=== PATIENT | female | born 1985 | race Caucasian/White ===

== ENCOUNTER 2021-08-15 01:51 | Day surgery (SDC) | payer OTHER, SELFPAY ==
[2021-08-05 09:25] VITALS: BMI 33.0
--- NOTE | 2021-08-05 09:30 | PC.NURSE ---
Report to the Outpatient Waiting Room, entrance under the green pavilion located off [facility], at time 1145 on date _08/15/21 . OR Time: _1345____. - You and your visitor will be asked a series of questions to screen for COVID 19 for your protection. - A mask is required within the hospital. Preoperative COVID Testing Requirements: No COVID Test needed if: (proof is required; if not received patient will have Rapid Test prior to entry) - Patient has received COVID Vaccine at least 14 days prior to procedure date or - Patient has positive COVID test result within last 90 days of surgery date. COVID Test needed if above criteria is not met If not COVID vaccinated a COVID test must be conducted within 72 hours of surgery and patient is asked to isolate self from time of testing until procedure. You will go to the [facility] for your COVID testing. The [facility] is located at the corner of [address] [facility]. You will only be called if COVID results are positive and your surgeon may reschedule your elective surgery date. Patients may have clear liquids (water, carbonated beverages, clear teas, apple juice) until 3 hours prior to surgery with a maximum of 20 ounces. - No food from midnight until time of surgery - Infants may have breast milk until 4 hours before surgery, infant formula 6 hours prior to surgery. - Children will be allowed to drink immediately following surgery. If applicable, please bring a bottle or sippy cup to assist with drinking. Juice, water, soda, and popsicles are readily available. For infants on formula, please bring formula the day of surgery. Pacifiers are allowed. Take the following medications with a SIP of water the morning of surgery: ___LEXAPRO Medications to discontinue per physician N/A Date to take last dose N/A Please no make-up, nail serbian, hairspray, perfume, deodorant, or body powder the day of surgery. No jewelry (including any body piercings) or valuables the day of surgery, leave them at home. Please take a shower or bath the night before, or the morning of, surgery with an antibacterial soap. Wear comfortable, loose fitting clothing. Children are encouraged to wear pajamas. - Jewelry must be removed prior to entering the operating room. Rings and piercings that are not removed may be cut off. - The hospital will not accept responsibility for valuables. - Please leave all valuables, including medications, at home the day of surgery. If you are going home after surgery, a licensed otr flatbed driver must drive you home. - NO public transportation without another adult. - We recommend that an adult stay with you for 24 hours following discharge. - We also recommend that you do not drive, make important decision, drink alcoholic beverages, or take any drugs that were not prescribed by your health care provider for at least 24 hours after your discharge time. For Pediatric surgeries, we recommend two adults accompany the child home (only one inside the building at this time). One visitor will be allowed to accompany the patient into the hospital. Patients visitor will be instructed to remain with patient at all times or leave the building. We will allow the visitor to come back to the postoperative area when patient is ready. Follow any additional instructions given to you from your surgeon. Telephone instructions given to _PATIENT__and asked if any additional questions and then verbalized understanding. Patient advised to call surgeon office or pre surgery nurse liaison [phone] if any additional questions.
--- NOTE | 2021-08-14 16:48 | WPDANESEPPF ---
Anes - Initial Pre Proc Eval Procedure: Operation Date: 08/15/21 09:30 Proposed Procedures p Loop Electrical Excision Procedure - Flaca Ba MD <Errol Lin MD - Last Filed: 08/26/21 06:54> Date/Time: 08/14/21 16:48 <Errol Lin MD - Last Filed: 08/26/21 06:54> Surgeon: Flaca Ba MD <Errol Lin MD - Last Filed: 08/26/21 06:54> Pre Op Diagnosis: MAYNOR 3 <Errol Lin MD - Last Filed: 08/26/21 06:54> Patient Data Age: 35 Gender: F Height: 1.65 m Weight: 90 kg <Errol Lin MD - Last Filed: 08/26/21 06:54> Allergies Allergy/AdvReac Type Severity Reaction Status Date / Time amoxicillin Allergy Hives Verified 08/15/21 08:38 <Errol Lin MD - Last Filed: 08/26/21 06:54> Home Medications Medication Instructions Recorded Confirmed Type escitalopram oxalate 5 mg tablet 5 mg PO DAILY 06/04/21 08/15/21 History medroxyprogesterone 150 mg/mL 150 mg IM [id number] 07/18/21 08/15/21 History intramuscular suspension <Errol Lin MD - Last Filed: 08/26/21 06:54> Patient hx anesthesia problems: none <Nicholas Tavares DO - Last Filed: 08/15/21 07:43> Family hx anesthesia problems: none <Nicholas Tavares DO - Last Filed: 08/15/21 07:43> Results Review: All pre-operative results and documents have been reviewed as part of the pre-operative evaluation. <Errol Lin MD - Last Filed: 08/26/21 06:54> PMFSH Past Medical History Medical History: Medical History High risk HPV infection History of vaginal delivery LGSIL on Pap smear of cervix Obesity <Errol Lin MD - Last Filed: 08/26/21 06:54> Social History Social History: Social History Smoking status: Never smoker Alcohol intake: never Substance use: never <Errol Lin MD - Last Filed: 08/26/21 06:54> Anes - Eval Final PreProcedure Day of Procedure 08/14/21 16:48 <Errol Lin MD - Last Filed: 08/26/21 06:54> Patient weight: obese <Errol Lin MD - Last Filed: 08/26/21 06:54> Heart: regular rate and rhythm <Errol Lin MD - Last Filed: 08/26/21 06:54> Lungs: clear to auscultation and normal air movement <Errol Lin MD - Last Filed: 08/26/21 06:54> Airway: Mallampati scale class II <Errol Lin MD - Last Filed: 08/26/21 06:54> Neurological: alert and oriented <Errol Lin MD - Last Filed: 08/26/21 06:54> Last oral intake: >/= 8 hours <Errol Lin MD - Last Filed: 08/26/21 06:54> ASA classification: II <Errol Lin MD - Last Filed: 08/26/21 06:54> Emergent: no <Errol Lin MD - Last Filed: 08/26/21 06:54> Anesthetic plan: proceed <Errol Lin MD - Last Filed: 08/26/21 06:54> Anesthesia type and monitoring: general GIVS and LMA <Errlo Lin MD - Last Filed: 08/26/21 06:54> Results Review: All pre-operative results and documents have been reviewed as part of the pre-operative evaluation. <Errol Lin MD - Last Filed: 08/26/21 06:54> Informed Consent: The patient's anesthetic plan and its attendant risks and benefits were discussed with the patient/family/POA. Questions were solicited and answers provided to the satisfaction of the patient/family/POA. <Errol Lin MD - Last Filed: 08/26/21 06:54>
--- NOTE | 2021-08-14 17:33 | PM.IMHP ---
H&P: HPI History of Present Illness Date/Time: 08/14/21 17:33 Patient is a 35yo woman with a long history of abnormal pap smears and cervical dysplasia. She is s/p LEEP in 2020. Subsequent pap smear in 04/2021 showed LGSIL. A colposcopy was performed showing MAYNOR 3. Discussion had with patient and decision was made to perform a re-excision. In general, patient reports feeling well today without complaints. Chief Complaint: High grade cervical dysplasia Review of Systems Review of Systems: All systems reviewed & are unremarkable except as noted in HPI and below Constitutional: Constitutional: Reports as per HPI, Reports no additional constitutional complaints, Denies chills, Denies fever(s), Denies headache(s) and Denies night sweats Eyes: Eyes: Reports as per HPI and Reports no additional eye complaints ENT: Reports system reviewed and no additional complaints, except as documented, Reports as per HPI, Reports Normal hearing present and Denies headache(s) Cardiovascular: Cardiovascular: Reports as per HPI, Reports no additional cardiovascular complaints, Denies chest pain and Denies dyspnea Respiratory: Respiratory: Reports as per HPI, Reports no additional respiratory complaints, Denies cough and Denies dyspnea Gastrointestinal: Gastrointestinal: Reports as per HPI, Reports no additional gastrointestinal complaints, Denies abdominal pain, Denies change in bowel habits, Denies change in stool character, Denies nausea and Denies vomiting Genitourinary: Genitourinary: Reports no additional female genitourinary complaints, Reports as per HPI, Denies abnormal vaginal bleeding, Denies genital lesions, Denies hot flashes, Denies dyspareunia, Denies pelvic pain, Denies sexual dysfunction, Denies urinary incontinence, Denies vaginal discharge, Denies vaginal dryness and Denies vaginal odor Musculoskeletal: Musculoskeletal: Reports no additional musculoskeletal complaints and Reports as per HPI Integumentary/Breasts: Skin/Breast: Reports system reviewed and no additional complaints, except as docu, Reports as per HPI, Denies breast pain and Denies nipple discharge Neurologic: Reports system reviewed and no additional complaints, except as documented, Reports as per HPI, Reports Normal hearing present and Denies headache(s) Psychiatric: Psychiatric: Reports no additional psychiatric complaints, Reports as per HPI, Denies anxiety and Denies depression Endocrine: Endocrine: Reports no additional endocrine complaints and Reports as per HPI Hematologic/Lymphatic: Hematologic/Lymphatic: Reports no additional hematologic/lymphatic complaints and Reports as per HPI Allergic/Immunologic: Allergic/Immunologic: Reports no additional allergic/immunologic complaints and Reports as per HPI PMFSH Past Medical History Medical History High risk HPV infection History of vaginal delivery LGSIL on Pap smear of cervix Obesity Social History Social History Smoking status: Never smoker Alcohol intake: never Substance use: never Meds Home Medications and Allergies Home Medications Medication Instructions Recorded Confirmed Type escitalopram oxalate 5 mg tablet 5 mg PO DAILY 06/04/21 08/05/21 History medroxyprogesterone 150 mg/mL 150 mg IM [id number] 07/18/21 08/05/21 History intramuscular suspension Allergies Allergy/AdvReac Type Severity Reaction Status Date / Time amoxicillin Allergy Hives Verified 08/13/21 10:20 Exam Const: General: cooperative, healthy appearing, comfortable and no acute distress HENMT: Head: normal to inspection Ears: hearing grossly normal bilaterally Eyes: General: appearance normal, both eyes and all related structures Neck: Neck: normal visual inspection Resp: Effort & Inspection: normal respiratory effort Auscultation: clear to auscultation bilaterally Cardio: Rate: regular rate Rhythm: regula
[2021-08-15 07:51] VITALS: BP 116/73; PULSE 75; RESP 16; TEMP 35.6; O2SAT 99
[2021-08-15] MEDS: LACTATED RINGERS 1,000 ML 30 ML IV CONT (07:59)
[2021-08-15] MEDS: ACETAMINOPHEN 500 MG TABLET 1000 MG PO (08:01)
--- NOTE | 2021-08-15 09:14 | WPDHPUPDATE1 ---
History and Physical Update Update Date/Time: 08/15/21 09:14 History and Physical has been reviewed, including an updated exam of the patient. There are NO changes in the patient's condition. Risks, benefits, and alternatives have been discussed and questions answered. Patient agrees to proceed with procedure.
[2021-08-15] MEDS: IODINE/POTASSIUM IODIDE 8 ML SOLUTION TOPICAL (09:46)
[2021-08-15 10:15] VITALS: BP 121/79; PULSE 65; RESP 12; O2SAT 100
--- NOTE | 2021-08-15 10:26 | W.PM.PROC2 ---
Procedure Note - Detailed Date of Procedure 08/15/21 Pre-op Diagnosis MAYNOR 3 Post-op Diagnosis Same Procedure Performed Loop electrosurgical excision procedure Surgeon Flaca Ba MD Anesthesia MAC Findings medium sized area of non-uptake noted circumferentially around cervix Description of Procedure The patient was taken to the operating room where she self-transferred to the operating room table. She was placed in dorsal supine position. Anesthesia was administered and found to be adequate. The patient was repositioned in dorsal lithotomy position and prepped and draped in the usual sterile fashion. A coated bivalve speculum was inserted into the vagina and suction tubing was connected to the speculum. The cervix was well visualized. A paracervical block was performed with 1% lidocaine. 5 cc of lidocaine was administered on both sides for a total of 10 cc. Lugol's solution was applied across the entire surface of the cervix. A medium sized area of non-uptake was noted circumferentially around the cervix. A medium-size loop was selected and connected to the electrical generator. This loop was used to make two passes across the cervix, The first pass was made to excise the inferior portion of the anterior surface of the cervix. The specimen was removed and set aside. A second pass was made to excise the superior portion of the anterior surface of the cervix and this specimen was also set aside. An endocervical curettage was performed. Rollerball cautery was used to cauterize the entire excision site and margins of the excision bed. Excellent hemostasis was noted. The procedure was deemed complete. The vagina was dried and the speculum was removed. The specimen were tagged with a suture and prepared to be sent to pathology for analysis. The patient was cleansed and dried. She was taken out of the dorsal lithotomy position and awakened from anesthesia without difficulty. She was transported to the recovery room in stable condition. All sponge and instrument counts were correct at the end of the procedure. Estimated Blood Loss 1 Urine Output 0 Drains No Packing No Pathology Yes (superior portion of cervix tagged at 12:00, inferior portion of cervix tagged at 6:00) Complications No immediate complications Condition Stable Disposition Same day [facility] Billing Surgery - Charge Forward: Surgery Billing
[2021-08-15 10:45] VITALS: BP 118/78; PULSE 56; RESP 16
[2021-08-15 11:15] VITALS: BP 117/79; PULSE 59; RESP 16
== END 2021-08-15 11:25 | disposition home or self-care (01) ==
PROVIDERS: Visit Provider Student in an Organized Health Care Education/Training Program
PROC: 0UBC7ZZ Excision of Cervix, Via Natural or Artificial Opening (ICD-10-PCS; CPT 57522; principal; 2021-08-15 09:30)
DX: N87.0 Mild cervical dysplasia (principal); N72 Inflammatory disease of cervix uteri; E66.9 Obesity, unspecified; Z68.34 Body mass index [BMI] 34.0-34.9, adult
CPT/HCPCS: 57522; 88305; 88307; A9270; J1100; J2250; J2405; J2704; J3010; J7120

== ENCOUNTER 2022-07-15 13:10 | Outpatient (CLI) | payer OTHER, SELFPAY ==
--- NOTE | ~2022-07-15 | XR_ITS ---
EXAM: XR wrist LT min 3V DATE: 07/15/2022 13:30 HISTORY: L WRIST EXTENSION Tenosynovitis,PAIN THRU 5TH . COMPARISON: None available. FINDINGS: Normal mineralization. No fracture or dislocation. No lytic or blastic lesion. Joint space s are maintained. No erosion or periosteal change. Soft tissues within normal limits. IMPRESSION: Normal left wrist radiograph findings. Reviewed, dictated and finalized at location K.
[2022-07-15 13:28] LABS: Basophils Absolute Auto 0.07 K/mm3 (0.00-0.10); Basophils Percent Auto 0.8 % (0.0-1.0); Eosinophils Absolute Auto 0.23 K/mm3 (0.02-0.50); Eosinophils Percent Auto 2.6 % (1.0-6.0); Hematocrit 38.1 % (35.0-49.0); Hemoglobin 12.9 g/dL (12.0-15.0); Immature Granulocyte Absolute 0.04 K/mm3 (0.00-0.00); Immature Granulocyte Percent A 0.4 % (0.0-0.0); Lymphocytes Absolute Auto 2.25 K/mm3 (1.10-4.50); Lymphocytes Percent Auto 25.1 % (18.0-42.0); Mean Corpuscular HGB Conc 33.9 g/dL (32.0-36.0); Mean Corpuscular Hemoglobin 31.6 pg (27.0-31.0); Mean Corpuscular Volume 93.4 fL (78.0-102.0); Mean Platelet Volume 9.7 fl (9.2-11.8); Monocytes Absolute Auto 0.57 K/mm3 (0.10-0.90); Monocytes Percent Auto 6.4 % (2.0-11.0); Neutrophils Absolute Auto 5.8 K/mm3 (1.7-7.2); Neutrophils Percent Auto 64.7 % (50.0-70.0); Platelet Count Result 305 K/mm3 (150-420); Red Blood Count 4.08 M/mm3 (4.20-5.40); Red Cell Distribution Width 12.2 % (11.6-14.4)
[2022-07-15 13:55] LABS: Alanine Aminotransferase 28 U/L (14-59); Albumin Level 3.8 g/dL (3.4-5.0); Alkaline Phosphatase 62 U/L (46-116); Anion Gap 9 mmol/L (8-16); Aspartate Amino Transferase 18 U/L (15-37); Bilirubin,Total 0.7 mg/dL (0.00-1.00); Blood Urea Nitrogen 14 mg/dL (7-18); Calcium 9.9 mg/dL (8.5-10.1); Carbon Dioxide 30 mmol/L (21-32); Chloride 101 mmol/L (98-108); Estimated Glomerular Filt Rate > 60; Glucose 90 mg/dL (70-99); Osmolality Calculated 290 mOsm/kg (285-295); Sodium 140 mmol/L (136-145); Total Protein 7.6 g/dL (6.4-8.2)
[2022-07-15 13:56] LABS: CRP < 0.5 mg/dL (0.0-0.9)
[2022-07-19 12:23] LABS: Anti Cyclic Citrullinated Pept <16 Units (<20)
== END 2022-07-15 13:11 | disposition home or self-care (01) ==
PROVIDERS: PCP Internal Medicine; Visit Provider Internal Medicine
DX: M65.88 Other synovitis and tenosynovitis, other site (principal); R22.9 Localized swelling, mass and lump, unspecified
CPT/HCPCS: 36415; 73110; 80053; 85025; 86038; 86140; 86200

== ENCOUNTER 2024-02-16 09:44 | Outpatient (CLI) | payer BC, SELFPAY ==
--- NOTE | ~2024-02-16 | US_ITS ---
Pelvic ultrasound. Clinical History: Pelvic pain Technique: Realtime transabdominal and transvaginal scanning of the pelvis was performed. Color flow Doppler and Doppler spectral analysis were performed. Findings: The uterus is anteverted. The endometrial stripe has a thickness of 12 mm. No focal mass i s identified. The right ovary measures 2.0 x 2.3 x 2.5 cm. No significant right ovarian or adnexal mass is seen. The left ovary measures 2.4 x 2.1 x 1.4 cm. No significant left ovarian or adnexal mass is seen. Vascular flow present in both ovaries on color Doppler analysis. There is no evidence of free fluid in the cul de sac. Impression: No significant abnormality seen. Reviewed, dictated and finalized at [facility]. [employer] Impression: No significant abnormality seen.
== END 2024-02-16 09:45 | disposition home or self-care (01) ==
PROVIDERS: PCP Nurse Practitioner Family; Visit Provider Nurse Practitioner Family
DX: R10.2 Pelvic and perineal pain (principal)
CPT/HCPCS: 76830; 76856